=== PATIENT | female | born 1935 | race Caucasian/White ===

== ENCOUNTER 2017-01-31 21:10 | Inpatient (IN) | payer BC, OTHER ==
--- NOTE | ~2017-01-31 | DS ---
Discharge Summary [facility] [address] [place]. [address] NAME: FÁTIMA MAHONEY : 39 STATUS : DIS IN PAT#: [id number] AGE: 81 ADM/REG DATE : 01/31/17 MR#: [id number] REPORT SERV DATE: 02/06/17 DICTATED BY: ROBY MARQUIS DATE: 02/05/17 REPORT STATUS : Draft TRANSCRIBED BY: ALBERTO DATE: 02/05/17 ADMISSION DATE: 01/31/2017 DISCHARGE DATE: 02/05/2017 REASON FOR ADMISSION: Left leg ulcer, concern for infection along with cellulitis. HISTORY OF PRESENT ILLNESS: Please refer Dr. Srinivas Martinez's history and physical dated 01/31/2017 for complete details regarding the patient's admission. In brief, the patient was admitted to the Hospitalist Service for management of her left leg ulcer and infection with cellulitis. HOSPITAL COURSE: The patient had an uncomplicated hospital course. Dr. Martinez admitted the patient and handed over care to Dr. Mullins, who had started her on IV antibiotics. Wound Care was consulted. Recommended Xeroform gauze to change daily along with some normal saline and wound cleanser, pat to dry, but no surgical intervention was required. Her cellulitis and infected ulcer were markedly improved throughout the hospitalization. She had received about four or five days' worth of vancomycin. She has reached maximal hospitalization and will be discharged home in stable condition. DISCHARGE DIAGNOSES: Left lower extremity ulcer with cellulitis, now resolving; type 2 diabetes; obstructive sleep apnea, on CPAP; chronic kidney disease stage 3; mild peripheral arterial disease seen on ultrasound; paroxysmal atrial fibrillation with rate controlled on anticoagulation. PROCEDURES: Include lower extremity duplex. CONSULTATION: With Wound Care. DISCHARGE MEDICATIONS: Include Eliquis 5 mg twice a day, aspirin 81 mg daily, vitamin B12, [place] 500 mg daily, iron sulfate 325 mg twice a day, Lasix 80 mg daily, NovoLog aspart 15 units after supper and 25 units of Levemir at bedtime, lovastatin 40 mg at bedtime, omega-3 fatty acid daily, Prilosec 20 mg daily, Spiriva daily. FOLLOWUP: The patient will follow up with her PCP, Kurt Strong, in one to two weeks. Spending over 30 minutes in discharge planning and coordination of care. LORETA Roby Marquis MD / [id number] Discharge Summary [facility] [id number] [place]. [address] NAME: FÁTIMA MAHONEY : 39 STATUS : DIS IN PAT#: [id number] AGE: 81 ADM/REG DATE : 01/31/17 MR#: [id number] REPORT SERV DATE: 02/06/17 DICTATED BY: ROBY MARQUIS DATE: 02/05/17 REPORT STATUS : Draft TRANSCRIBED BY: MODL DATE: 02/05/17 CC: MD KURT Tabor
--- NOTE | ~2017-01-31 | HP ---
History And Physical [address] [address] NAME: FÁTIMA MAHONEY : 39 STATUS : ADM IN PAT#: [id number] AGE: 81 ADM/REG DATE : 01/31/17 MR#: [id number] REPORT SERV DATE: 02/01/17 DICTATED BY: CLIFF CHANG DATE: 01/31/17 REPORT STATUS : Draft TRANSCRIBED BY: MODL DATE: 01/31/17 DATE OF ADMISSION: 01/31/2017 CHIEF COMPLAINT: A 81-year-old female, presenting with left leg ulceration, infection, cellulitis. HISTORY OF PRESENT ILLNESS: The patient's history was obtained through careful interview with the patient and her daughter, Baylee, coupled with [facility]. For about two weeks now the patient has had left leg blisters that have eroded away ulcerating over her webb. She has had increasing erythema and heat from her leg with tenderness and pain. She describes left leg pain a throbbing quality. She describes the quality is "from the bone" 10/10 severity. She has had increasing lower extremity edema, the left leg greater than the right. She describes stable chronic dyspnea on exertion. No cough. No chest pain. No change of bowel or bladder habit. She admits that over the last week her blood sugars have been difficult to control with frequent blood sugars over 300 despite taking her regular insulin doses. REVIEW OF SYSTEMS: Otherwise, a 14-point review of systems was obtained and was negative. PAST MEDICAL HISTORY: 1. Transient ischemic attack. 2. Diabetes. 3. Essential tremor. 4. Neuropathy. 5. Previous right leg cellulitis and ulcer. 6. Elevated cholesterol. 7. Obstructive sleep apnea, on CPAP. 8. Restless legs syndrome. 9. Chronic kidney disease, stage 3. Baseline creatinine of 1.3 to 1.5. 10.Depression. PAST SURGICAL HISTORY: 1. Bilateral knee operations. 2. Cholecystectomy. 3. Bladder surgery. 4. Right foot surgery. History And Physical [address] [address] NAME: FÁTIMA MAHONEY : 39 STATUS : ADM IN PAT#: [id number] AGE: 81 ADM/REG DATE : 01/31/17 MR#: [id number] REPORT SERV DATE: 02/01/17 DICTATED BY: CLIFF CHANG DATE: 01/31/17 REPORT STATUS : Draft TRANSCRIBED BY: ALBERTO DATE: 01/31/17 ALLERGIES: TO PENICILLIN AND HYDROCODONE. SOCIAL HISTORY: Lives with her daughter in [place], [place]. Has been a since 1998. Has other children and grandchildren. No tobacco abuse. No alcohol abuse. FAMILY HISTORY: Father of cancer and heart disease. Mother with heart disease. Son with Parkinson disease. CURRENT MEDICATIONS: 1. Eliquis 5 mg p.o. b.i.d. 2. Aspirin 81 mg p.o. daily. 3. Calcium. 4. Vitamin D. 5. Vitamin B12. 6. Iron 325 mg p.o. b.i.d. 7. Lasix 80 mg p.o. daily. 8. NovoLog 15 units before supper. 9. Levemir 25 units subcutaneous at bedtime. 10.Mevacor 40 mg p.o. daily. 11.Fish oil. 12.Prilosec 20 mg daily. 13.Spiriva inhale daily. PHYSICAL EXAMINATION: VITAL SIGNS: Temperature 98.3, pulse 87, blood pressure 140/62, respiratory rate 20, and O2 saturation 96% on room air. GENERAL: A pleasant, cooperative female, in no significant distress at the time of my evaluation. HEENT: Pupils equal, round, and reactive to light. No conjunctival pallor. No scleral icterus. Nares are patent. Oropharynx is clear of obstruction. Moist mucous membranes. NECK: Trachea midline. No thyromegaly. LYMPH: No cervical lymphadenopathy. No supraclavicular lymphadenopathy. No left inguinal lymphadenopathy. RESPIRATORY: Clear to auscultation at bases. No wheezes, rales, or rhonchi. Normal respiratory effort. CARDIOVASCULAR: Regular rate and rhythm. No murmurs, rubs, or gallops. The patient does have bilateral pitting lower extremity edema, the left leg greater than the right. ABDOMEN: Soft, nontender, and nondistended. Normal bowel sounds auscultated throughout. No hepatosplenomegaly. DERMATOLOGICAL: The patient's left webb shows an extensive area of ulceration, very superficial though, and the patient has an extensive area of erythema, heat, swelling, tenderness. There is no purulent drainage at the time of my evaluation to be cultured, but just serous clear drainage. Warm and dry extremities. No pallor. No cyanosis. PSYCHIATRIC: Normal affect. Good mood. Alert and oriented x3. LABORATORY DATA: White blood cell count 10.2, hemoglobin 13, hematocrit 39, and platelets 277. History And Physical [address] [place]. [address] NAME: FÁTIMA MAHONEY : 39 STATUS : ADM IN PAT#: [id number] AGE: 81 ADM/REG DATE : 01/31/17 MR#: [id number] REPORT SERV DATE: 02/01/17 DICTATED BY: CLIFF CHANG DATE: 01/31/17 REPORT STATUS : Draft TRANSCRIBED BY: MODDaphney DATE: 01/31/17 Sodium 133, potassium 3.5, chloride 95, bicarb 33, BUN 25, creatinine 1.3, and glucose 330. Liver enzymes within normal limits. STUDIES: X-ray from [facility] suggested no bony disease of the left leg. ASSESSMENT AND PLAN: 1. Left leg ulceration and infection with cellulitis. Check blood cultures which were obtained at [facility]. Started on IV vancomycin and IV Rocephin at [facility], so we will continue those here. We will obtain a Wound Care consult. Check a venous Doppler ultrasound and arterial Doppler ultrasound to rule out vascular disease despite being on anticoagulation. 2. Uncontrolled diabetes. Increase basal insulin. Continue premeal insulin and an aggressive sliding scale insulin. Check hemoglobin A1c. 3. Chronic kidney disease, stage 3. 4. Obstructive sleep apnea. Continue CPAP. 5. Paroxysmal atrial fibrillation, on Eliquis. KPL/MODL Cliff Chang M.D. / [id number] CC: MD Paul Tay M.D.
[~2017-01-31 21:10] MED LIST: CIP5 PO; CYMBALTA30 PO; DIOVAN HC1 PO; FERRETTS325 MG PO; L40 PO; LANTUS SC; MEVACOR10 MG PO; MICRO-K10 MEQ PO; MULTIPLE VIT PO; NOVOLOG SC; OXAPROZIN600 MG PO; PRILO PO; T PO
[2017-01-31] MEDS ORDERED: SPIRIVA INH (21:45)
[2017-01-31] MEDS ORDERED: NOVOLOG SC (21:46)
[2017-01-31] MEDS ORDERED: LEVEMIR SC (21:46)
[2017-01-31] MEDS ORDERED: PRILO PO (21:47)
[2017-01-31] MEDS ORDERED: L40 PO (21:47)
[2017-01-31] MEDS ORDERED: HALF81 PO (21:47)
[2017-01-31] MEDS ORDERED: ELIQUIS 5 MG TAB5 MG PO (21:47)
[2017-01-31] MEDS ORDERED: MEVACOR40 MG PO (21:48)
[2017-01-31] MEDS ORDERED: B12250T PO (21:48)
[2017-01-31] MEDS ORDERED: FISH OIL1200 MG PO (21:48)
[2017-01-31] MEDS ORDERED: FERROUS SULF325 M1 PO (21:48)
[2017-01-31] MEDS ORDERED: OS500+D PO (21:49)
[2017-02-01 05:04] LABS: BASOPHILS 0 %; EOSINOPHILS 3.6 %; EOSINOPHILS ABSOLUTE 0.27 10/3/uL (0.0-0.53); HEMOGLOBIN 11.4 g/dL (12.0-16.0); IMMATURE GRANULOCYTES 0.4 %; IMMATURE GRANULOCYTES ABSOLUTE 0.03 10/3/uL (0.0-0.11); LYMPHOCYTES 23.2 %; LYMPHOCYTES ABSOLUTE 1.76 10/3/uL (0.67-4.30); MEAN CORPUSCULAR HEMOGLOB 29.2 pg (26.0-34.0); MEAN PLATELET VOLUME 8.6 fL (9.2-13.0); MONOCYTES 8.8 %; MONOCYTES ABSOLUTE 0.67 10/3/uL (0.21-1.20); NEUTROPHILS ABSOLUTE 4.86 10/3/uL (2.02-8.40); PLATELET COUNT 233 10/3/uL (150-400); RBC DISTRIBUTION WIDTH 12.7 % (12.0-16.0); WHITE BLOOD CELLS 7.6 10/3/uL (4.5-10.5)
[2017-02-01 05:06] LABS: HEMATOCRIT 34.7 % (36.0-48.0); MANUAL DIFF NO %; MEAN CORPUS HGB CONC 32.9 g/dL (32.0-36.0)
[2017-02-01 05:10] LABS: INTERNATIONAL NORMAL RATI 1.6 UNITS (-); PROTIME (NOT ORD) 18.6 SEC (12.0-14.5)
[2017-02-01 05:11] LABS: PARTIAL THROMBO TIME 40.5 SEC (22.5-37.2)
[2017-02-01 05:26] LABS: A/G RATIO 0.6 (0.7-1.9); ALBUMIN 2.4 G/DL (3.5-5.0); ALKALINE PHOSPHATASE 73 U/L (45-117); BUN (BLOOD UREA NITROGEN) 20 MG/DL (6-23); CALCIUM, SERUM 8.8 MG/DL (8.5-10.4); CHLORIDE, SERUM 102 MMOL/L (96-112); CO2 (CARBON DIOXIDE) 30 MMOL/L (24-34); CREATININE 1.32 MG/DL (0.55-1.02); GFR AFRICAN AMERICAN 44 ML/MIN (>=60); GFR NON AFRICAN AMERICAN 38 ML/MIN (>=60); GLOBULIN 3.9 G/DL (2.5-4.1); GLUCOSE, SERUM 271 MG/DL (60-99); POTASSIUM, SERUM 3.3 MMOL/L (3.5-5.3); SGOT(AST) 11 U/L (5-40); SGPT(ALT) 12 U/L (5-65); SODIUM, SERUM 137 MMOL/L (135-148); TOTAL BILIRUBIN 0.3 MG/DL (0-1.2); TOTAL PROTEIN 6.3 G/DL (6.0-8.5); TROPONIN I <0.02 NG/ML (<0.05); ULTRASENSITIVE TSH 0.851 MCIU/ML (0.358-3.740)
[2017-02-01 05:46] LABS: B NATRIURETIC PEPTIDE (BNP) 67.1 PG/ML (< 100.0)
[2017-02-01 07:12] LABS: GLYCOHEMOGLOBIN (HbA1c) 8.3 % (4.7-6.1)
[2017-02-02 07:33] LABS: BUN (BLOOD UREA NITROGEN) 18 MG/DL (6-23); CHLORIDE, SERUM 105 MMOL/L (96-112); CO2 (CARBON DIOXIDE) 32 MMOL/L (24-34); CREATININE 1.16 MG/DL (0.55-1.02); GFR AFRICAN AMERICAN 52 ML/MIN (>=60); GFR NON AFRICAN AMERICAN 45 ML/MIN (>=60); GLUCOSE, SERUM 124 MG/DL (60-99); POTASSIUM, SERUM 3.7 MMOL/L (3.5-5.3); SODIUM, SERUM 142 MMOL/L (135-148)
[2017-02-02 14:45] LABS: BASOPHILS 0.1 %; BASOPHILS ABSOLUTE 0.01 10/3/uL (0.0-0.16); EOSINOPHILS 4.3 %; EOSINOPHILS ABSOLUTE 0.35 10/3/uL (0.0-0.53); HEMATOCRIT 35.7 % (36.0-48.0); HEMOGLOBIN 11.8 g/dL (12.0-16.0); IMMATURE GRANULOCYTES 0.4 %; IMMATURE GRANULOCYTES ABSOLUTE 0.03 10/3/uL (0.0-0.11); LYMPHOCYTES 26.7 %; MEAN CORPUS HGB CONC 33.1 g/dL (32.0-36.0); MEAN CORPUSCULAR HEMOGLOB 29.4 pg (26.0-34.0); MONOCYTES 8.4 %; MONOCYTES ABSOLUTE 0.69 10/3/uL (0.21-1.20); NEUTROPHILS 60.1 %; NEUTROPHILS ABSOLUTE 4.95 10/3/uL (2.02-8.40); PLATELET COUNT 256 10/3/uL (150-400); RBC DISTRIBUTION WIDTH 12.5 % (12.0-16.0); RED CELL COUNT 4.01 10/6/uL (4.0-5.6); WHITE BLOOD CELLS 8.2 10/3/uL (4.5-10.5)
[2017-02-02 14:46] LABS: MANUAL DIFF NO %
[2017-02-03 06:29] LABS: BASOPHILS 0.1 %; BASOPHILS ABSOLUTE 0.01 10/3/uL (0.0-0.16); EOSINOPHILS 4.7 %; EOSINOPHILS ABSOLUTE 0.42 10/3/uL (0.0-0.53); HEMATOCRIT 37.2 % (36.0-48.0); HEMOGLOBIN 12.1 g/dL (12.0-16.0); IMMATURE GRANULOCYTES 0.3 %; IMMATURE GRANULOCYTES ABSOLUTE 0.03 10/3/uL (0.0-0.11); LYMPHOCYTES 25.1 %; LYMPHOCYTES ABSOLUTE 2.26 10/3/uL (0.67-4.30); MANUAL DIFF NO %; MEAN CORPUS HGB CONC 32.5 g/dL (32.0-36.0); MEAN CORPUSCULAR HEMOGLOB 29.5 pg (26.0-34.0); MEAN CORPUSCULAR VOLUME 90.7 fL (80-100); MEAN PLATELET VOLUME 8.8 fL (9.2-13.0); MONOCYTES 9.7 %; MONOCYTES ABSOLUTE 0.87 10/3/uL (0.21-1.20); NEUTROPHILS 60.1 %; NEUTROPHILS ABSOLUTE 5.41 10/3/uL (2.02-8.40); PLATELET COUNT 278 10/3/uL (150-400); RBC DISTRIBUTION WIDTH 12.5 % (12.0-16.0)
[2017-02-03 06:45] LABS: BUN (BLOOD UREA NITROGEN) 20 MG/DL (6-23); CALCIUM, SERUM 9.3 MG/DL (8.5-10.4); CHLORIDE, SERUM 104 MMOL/L (96-112); CO2 (CARBON DIOXIDE) 29 MMOL/L (24-34); CREATININE 1.26 MG/DL (0.55-1.02); GFR AFRICAN AMERICAN 47 ML/MIN (>=60); GFR NON AFRICAN AMERICAN 40 ML/MIN (>=60); POTASSIUM, SERUM 3.9 MMOL/L (3.5-5.3); SODIUM, SERUM 141 MMOL/L (135-148)
[2017-02-03 06:51] LABS: GLUCOSE, SERUM 175 MG/DL (60-99)
[2017-02-05 06:35] LABS: CALCIUM, SERUM 9.1 MG/DL (8.5-10.4); CHLORIDE, SERUM 102 MMOL/L (96-112); CO2 (CARBON DIOXIDE) 29 MMOL/L (24-34); CREATININE 1.28 MG/DL (0.55-1.02); GFR AFRICAN AMERICAN 46 ML/MIN (>=60); GFR NON AFRICAN AMERICAN 40 ML/MIN (>=60); POTASSIUM, SERUM 3.9 MMOL/L (3.5-5.3); SODIUM, SERUM 139 MMOL/L (135-148); VANCOMYCIN TROUGH 10.3 MCG/ML (10.0-20.0)
[2017-02-05 06:36] LABS: BUN (BLOOD UREA NITROGEN) 24 MG/DL (6-23); GLUCOSE, SERUM 211 MG/DL (60-99)
[2017-02-05] MEDS ORDERED: DORYX100 MG PO (11:59)
== END 2017-02-05 13:32 | disposition home or self-care (01) | DRG 638 ==
LOC: 4SO 21:10
PROVIDERS: Hospitalist; Internal Medicine; Student in an Organized Health Care Education/Training Program
DX: E11.622 Type 2 diabetes mellitus with other skin ulcer (principal); L03.116 Cellulitis of left lower limb; L97.821 Non-pressure chronic ulcer of other part of left lower leg limited to breakdown of skin; E11.22 Type 2 diabetes mellitus with diabetic chronic kidney disease; E11.40 Type 2 diabetes mellitus with diabetic neuropathy, unspecified; E11.628 Type 2 diabetes mellitus with other skin complications; N18.3 Chronic kidney disease, stage 3 (moderate); Z88.0 Allergy status to penicillin; Z88.5 Allergy status to narcotic agent; Z79.01 Long term (current) use of anticoagulants; Z79.82 Long term (current) use of aspirin; Z79.4 Long term (current) use of insulin; E11.65 Type 2 diabetes mellitus with hyperglycemia; G47.33 Obstructive sleep apnea (adult) (pediatric); I48.0 Paroxysmal atrial fibrillation; E11.51 Type 2 diabetes mellitus with diabetic peripheral angiopathy without gangrene
CPT/HCPCS: 80048; 80053; 80202; 82962; 83036; 83735; 83880; 84132; 84443; 84484; 85025; 85610; 85730; 93005; 93925; 93970; A9270-GY; J0690; J3370